=== PATIENT | male | born 2000 | race African-American/Black ===

== ENCOUNTER 2025-01-03 04:15 | Emergency (ER) | payer MEDICAID, SELFPAY ==
[2025-01-03] MEDS ORDERED: Ketorolac Tromethamine 30 MG (1 mL) VIAL ONE (04:36)
[2025-01-03] MEDS ORDERED: Acetaminophen 500 MG TAB ONE (04:39)
== END 2025-01-03 04:43 | disposition home or self-care (01) ==
LOC: ERS 04:15
DX: K02.9 Dental caries, unspecified (principal); K03.81 Cracked tooth
CPT/HCPCS: 99282; J1885